=== PATIENT | male | born 1945 | race Caucasian/White ===

== ENCOUNTER → 2016-09-02 | Day surgery (SDC) | payer MEDICARE, OTHER ==
[~2016-09-02] MED LIST: GLIP5TAB10 PO; LIDOCAINE 1%, 20ML ONE; LISI5TAB7 PO; METF500T4 PO; PIOG15TA9 PO
== END ==
LOC: RAD 11:46
PROVIDERS: ATTEND Internal Medicine Hematology & Oncology
DX: D47.2 Monoclonal gammopathy (principal)
CPT/HCPCS: 38221; 77012; 85097; 88237; 88264; 88280; 88305; 88311; 88313; 88341; 88342; 88360; G0364; J3490; 85025; G0461

== ENCOUNTER → 2019-10-14 | Outpatient (CLI) | payer MEDICARE, OTHER ==
[~2019-10-14] MED LIST changes: -LIDOCAINE 1%, 20ML ONE; +METF500T17 PO; -METF500T4 PO; +PIOG15TA22 PO; -PIOG15TA9 PO; +REGADENOSON 0.4 MG/5 ML SYRINGE ONE
== END | disposition home or self-care (01) ==
LOC: CFH 07:58
PROVIDERS: ATTEND Internal Medicine Cardiovascular Disease
DX: I10 Essential (primary) hypertension (principal); R55 Syncope and collapse
CPT/HCPCS: 78452; 93017; A9502; J2785